=== PATIENT | male | born 1990 | race Two or more races ===

== ENCOUNTER 2022-03-09 09:17 | Emergency (ER) | payer OTHER ==
[2022-03-09 09:52] VITALS: BP 131/84; PULSE 91; TEMP 98.6; BMI 24.5
[2022-03-09 10:03] LABS: HCG,QUALITATIVE URINE Negative
[2022-03-09 10:26] LABS: EPITHELIAL CELLS RARE /hpf
[2022-03-09] MEDS ORDERED: FLUCONAZOLE 50 MG TABLET PO ONE (11:41)
[2022-03-09] MEDS ORDERED: IBUPROFEN 600 MG TABLET (FP) PO ONE ×2 (11:41→12:03)
[2022-03-09] MEDS ORDERED: LIDOCAINE 5% TOPICAL PATCH TP ONE (11:50)
[2022-03-09] MEDS ORDERED: FLUCONAZOLE 150 MG TABLET PO ONE (12:03)
[2022-03-09] MEDS ORDERED: LIDOCAINE 5% TOPICAL PATCH ONE (12:04)
[2022-03-09] MEDS ORDERED: LIDOCAINE PATCH REMOVAL MC SCH (22:00)
== END 2022-03-09 12:11 | disposition home or self-care (01) ==
LOC: EDBD → FER 09:17
DX: S39.012A Strain of muscle, fascia and tendon of lower back, initial encounter (principal); B37.9 Candidiasis, unspecified; Y99.9 Unspecified external cause status
CPT/HCPCS: 76830-TC; 81003; 81015; 84703; 87086; 99284-25